=== PATIENT | female | born 1945 | race Caucasian/White ===

== ENCOUNTER → 2020-04-23 | Outpatient (CLI) | payer MEDICARE ==
[~2020-04-23] MED LIST: REGADENOSON 0.4 MG/5 ML DISP.SYRIN. IV ONE
--- NOTE | 2020-04-23 10:23 | CARD ---
MR#: [id number] Date of Study: 04/23/2020 Ordering Physician: CALLY MACARIO, Referring Physician: CALLY MACARIO, Tech: Krystyna Lester [facility] APPROVED REPORT EXAM: Two-dimensional and M-mode echocardiogram with Doppler and color Doppler. Other Information Quality : Technically Limited Technically limited study due to lung/rib interference INDICATION Cardiac Disease: CAD 2D DIMENSIONS RVDd2.9 (2.9-3.5cm)Left Atrium(2D)3.1 (1.6-4.0cm) IVSd0.6 (0.7-1.1cm)Aortic Root(2D)2.9 (2.0-3.7cm) LVDd4.2 (3.9-5.9cm)LVOT Diameter1.9 (1.8-2.4cm) PWd0.7 (0.7-1.1cm)LVDs2.3 (2.5-4.0cm) FS (%) 30.0 %SV61.7 ml LVEF(%)60.0 (>50%) Aortic Valve AoV Peak Jin.107.6cm/sAoV VTI25.0cm AO Peak GR.4.6mmHgLVOT Peak Jin.89.7cm/s AO Mean GR.2mmHgAVA (VMAX)2.33cm2 EVELYN (VTI)2.50cm2 Mitral Valve MV E Qcnksrkj29.3cm/sMV DECEL RUCG265dr MV A Xztfgrzr18.7cm/sE/A Ratio0.9 Tricuspid Valve TR P. Lzkctsin419ud/sRAP LNDAVPUC1oiCg TR Peak Gr.42jtUoENED28feJt Pulmonary Vein S1 Imjiianv02.9cm/sD2 Iovknxsf70.5cm/s LEFT VENTRICLE The left ventricle is normal size. There is normal left ventricular wall thickness. The left ventricu lar systolic function is normal and the ejection fraction is within normal range. The Ejection Fracti on is 55-60%. There is normal LV segmental wall motion. Transmitral Doppler flow pattern is Grade I-a bnormal relaxation pattern. RIGHT VENTRICLE The right ventricle is normal size. The right ventricular systolic function is normal. ATRIA The left atrium size is normal. The right atrium size is normal. The interatrial septum is intact wit h no evidence for an atrial septal defect or patent foramen ovale as noted on 2-D or Doppler imaging. AORTIC VALVE The aortic valve is mildly thickened but opens well. Doppler and Color Flow revealed no significant a ortic regurgitation. There is no significant aortic valvular stenosis. MITRAL VALVE The mitral valve is calcified but opens well. There is no evidence of mitral valve prolapse. There is no mitral valve stenosis. Doppler and Color-flow revealed mild mitral regurgitation. TRICUSPID VALVE The tricuspid valve is normal in structure and function. Doppler and Color Flow revealed mild tricusp id regurgitation. The PA pressure was estimated at 31 mmHg. There is no tricuspid valve stenosis. PULMONIC VALVE The pulmonic valve is not well visualized. Doppler and Color Flow revealed trace to mild pulmonic olman vular regurgitation. There is no pulmonic valvular stenosis. GREAT VESSELS The aortic root is normal in size. The ascending aorta is mildly dilated at 3.4 cm. The IVC is normal in size and collapses >50% with inspiration. PERICARDIAL EFFUSION There is no evidence of significant pericardial effusion. Critical Notification Critical Value: No <Conclusion> The left ventricular systolic function is normal and the ejection fraction is within normal range. Th e Ejection Fraction is 55-60%. There is normal LV segmental wall motion. The ascending aorta is mildly dilated at 3.4 cm. Signed by : Cally Macario, Electronically Approved : 04/23/2020 10:22:51
--- NOTE | 2020-04-23 17:16 | RAD ---
MR#: [id number] Date of Study: 04/23/2020 Ordering Physician: CALLY LOPEZ, Referring Physician: BALA RUBALCAVA Tech: ANITRA Carvalho ARRT (Reg) (N) APPROVED REPORT Test Type: Pharmacological Stress Nurse/Tech: Aron Childress RN Test Indications: CAD Cardiac History: HTN, Cardiac cath in 2011 w stent to LAD, See EMR Medications: ASA, See EMR Medical History: See EMR Resting ECG: SB Resting Heart Rate: 54 bpm Resting Blood Pressure: 161/75mmHg Pretest Chest Pain: No chest pain Nurse/Tech Notes Lungs CTA, Heart tones regular. Consent: The procedure was explained to the patient in lay terms. Informed consent was witnessed. Pablo eout was entered into [employer]. History and Stress Test performed by ANITRA Carvalho ARRT (Reg) (N) Pharm. Details Pharmacologic stress testing was performed using 0.4mg per 5ml of regadenoson given intravenously ove r 7-10 seconds. Stress Symptoms No chest pain or symptoms. POST EXERCISE Reason for Termination: Infusion complete Max HR: 74 bpm Max Blood Pressure: 160/78mmHg Blood Pressure response to exercise: Normal blood pressure response during stress. Heart Rate response to exercise: WNL Chest Pain: No. Arrhythmia: No. ST Change: No. INTERPRETATION Stress EKG Conclusion: No evidence of stress induced EKG changes. Imaging Protocol IMAGE PROTOCOL: Rest Tc-99m/stress Tc-99m 1 day Rest: Stress: Viability: Radiopharm.Tc99m FkvkqdjyxVb39z Sestamibi Isww14bUp 33mCi Img Date 04/23/2020 04/23/2020 Inj-Img Rtlx98jyn. 60min. Rest Admin Site:IV - Left ForearmAdministrator:TODD Rodríguez Stress Admin Site: IV - Left ForearmAdministrator: ANITRA Carvalho ARRT (R)(N) STRESS DATA End Diast. Vol.48.0mlAv. Heart Rate60.0bpm End Syst. Vol.5.0mlCO Index BSA0.0L/min Myocardial Mass92.0gEject. Uubjuxch60.0% Stress Rates Pk. Fill Rate2.86EDV/secLVtime Pk. Fill 117.51msec Pk. Empty Rate3.22ESV/secLVtime Pk. Qjylg413.29msec 1/3 Pk. Fill2.06EDV/sec Stress Scores Regional WT0.00Summed WT0.00 Regional WM0.00Summed WM1.00 The rest and stress images show normal perfusion, normal contraction and thickening. LV Perf. Quant 17 Seg. SSS6.00 17 Seg. SRS3.00 17 Seg. SDS4.00 Stress Defect Extent (% LAD)0.00Rest Defect Extent (% LAD)0.00Rev. Defect Extent (% LAD)0.00 Stress Defect Extent (% LCX) 26.30Rest Defect Extent (% LCX)10.00Rev. Defect Extent (% LCX)6.30 Stress Defect Extent (% RCA)2.20Rest Defect Extent (% RCA)16.70Rev. Defect Extent (% RCA)0.00 Stress Defect Extent (% MICHAEL)8.70Rest Defect Extent (% MICHAEL)6.70Rev. Defect Extent (% MICHAEL)1.30 Other Information Quality:Average Risk Assessment: Low Risk Conclusion 1. No evidence of EKG changes with stress testing. 2. Normal perfusion at stress/rest. 3. Low risk study. 4. EF > 60%. Signed by : Cally Lopez, Electronically Approved : 04/23/2020 17:16:07
== END | disposition home or self-care (01) ==
LOC: ECHO 08:51
PROVIDERS: ATTEND Internal Medicine Cardiovascular Disease
DX: I08.8 Other rheumatic multiple valve diseases (principal); I25.10 Atherosclerotic heart disease of native coronary artery without angina pectoris; I10 Essential (primary) hypertension; Z98.61 Coronary angioplasty status
CPT/HCPCS: 78452; 93017; 93306; A9500; J2785